=== PATIENT | male | born 1980 | race Asian ===

== ENCOUNTER 2019-11-17 13:35 | Emergency (ER) | payer BC ==
[~2019-11-17] VITALS: Ht 172.7 cm; Wt 78.9 kg
[2019-11-17 13:52] VITALS: Ht 172.7 cm; Wt 78.9 kg
[2019-11-17 17:15] VITALS: BP 133/88
== END 2019-11-17 17:15 | disposition home or self-care (01) ==
LOC: ED 13:35
DX: B02.22 Postherpetic trigeminal neuralgia (principal)
CPT/HCPCS: J1885; J3010